=== PATIENT | male | born 2000 | race Caucasian/White ===

== ENCOUNTER 2023-08-22 02:05 | Emergency (ER) | payer OTHER ==
[~2023-08-22] VITALS: Ht 188 cm; Wt 85.0 kg
[2023-08-22 02:19] VITALS: O2SAT 98
[2023-08-22] MEDS ORDERED: IBUP-2029 MT (07:23)
[2023-08-22] MEDS ORDERED: CLOT24CR TP (07:23)
[2023-08-22] MEDS ORDERED: AMOX1TAB16 MT (07:23)
[2023-08-22 08:09] VITALS: BP 128/60; PULSE 60; RESP 16; TEMP 98.1
== END 2023-08-22 08:09 | disposition home or self-care (01) ==
LOC: ER 02:05
DX: N47.6 Balanoposthitis (principal)
CPT/HCPCS: 99281